=== PATIENT | female | born 1960 | race Caucasian/White ===

== ENCOUNTER 2016-06-10 10:20 | Emergency (ER) | payer MEDICARE, OTHER ==
[~2016-06-10] VITALS: Wt 70.0 kg
[~2016-06-10 10:20] MED LIST: IBUP800T25 PO; OMEP20CA16 PO; SIMV5TAB31 PO
[2016-06-10] MEDS ORDERED: LIDOCAINE 1% (MDV) 20 ML INJ SC ONE (11:30)
[2016-06-10] MEDS ORDERED: CEPH-443 PO (11:48)
[2016-06-10] MEDS ORDERED: BACTDS PO (11:48)
[2016-06-10] MEDS ORDERED: DIPHTH/TET/ACEL PERTUSS (ADULT) 0.5 ML VIAL IM* ONE (12:00)
--- NOTE | 2016-06-10 14:22 | ERD ---
DATE OF SERVICE: HISTORY OF PRESENT ILLNESS: The patient is a 55-year-old female complaining of left breast pain fro m an abscess for the last 2 days. She states that she has had no drainage. She has had no masses. There are no fevers. She is not . She has not used any medication for the symptoms. PAST MEDICAL HISTORY: She is diabetic, with no insulin. Hypertension, hypercholesterolemia, and os teoporosis. ALLERGIES TO MEDICATIONS: DENIES. SURGICAL HISTORY: Denies. REVIEW OF SYSTEMS: A 12-point review of systems was done. Refer to HPI for positives, all other sy stems negative. PHYSICAL EXAMINATION VITAL SIGNS: Temperature is 98.6, pulse 88, blood pressure is 138/70, respiratory rate 20, O2 satur ation 98% on room air. Pain intensity is 7/10. GENERAL: The patient is well-appearing, well-nourished, no acute distress. HEART: Regular rate and rhythm. No murmurs, clicks, rubs or gallops. No S3 or S4. CHEST: Clear to auscultation bilaterally. There are no rales, wheezes or rhonchi. HEENT: Atraumatic. Conjunctivae are pink. Pupils equal, round, and reactive to light. There is no s cleral icterus. Tympanic membranes clear bilaterally. Oropharynx clear. No nystagmus or photophobia . SKIN: Patient has an erythematous site noted on the left inferior lateral breast which is mildly er ythematous and fluctuant, with no lymphatic streaking, no indurated masses. ER COURSE: Site was cleaned, and approximately 2 mL of plain lidocaine were injected into the site. A small 1 cm linear incision was made and copious discharge was drained. The site was re-cleaned and a pressure bandage was applied. The patient given a tetanus shot in the ER. MEDICAL DECISION MAKING: I have a low suspicion for underlying deep tracking abscess. Patient like ly has superficial abscess, but is recommended to return in 2 days for close evaluation. DIAGNOSES: Abscess. DISCHARGE: The patient is discharged stable. Patient given prescription for Bactrim and Keflex and told to return in 2 days. Patient was told if symptoms progress or worsen to return to the ER. Al l other questions answered at time of discharge. Discharge summary given at the time of departure. Patient understood and complied with plan. Dictated By: ANGELADIVYA GR/FAITH Conf#: [id number] DID#: [id number]
== END 2016-06-10 12:06 | disposition home or self-care (01) ==
LOC: FTE 10:20
DX: N61.1 Abscess of the breast and nipple (principal); E11.9 Type 2 diabetes mellitus without complications; I10 Essential (primary) hypertension; Z23 Encounter for immunization
CPT/HCPCS: 90471; 90715

== ENCOUNTER 2016-12-06 10:17 | Emergency (ER) | payer MEDICARE, OTHER ==
[~2016-12-06] VITALS: Wt 75.0 kg
[~2016-12-06 10:17] MED LIST changes: +BACTDS PO; +CEPH-443 PO
[2016-12-06] MEDS ORDERED: LORA-186 PO (10:44)
[2016-12-06] MEDS ORDERED: BENZ100C70 PO (10:44)
[2016-12-06] MEDS ORDERED: FLUT9.9S NASAL (10:44)
[2016-12-06] MEDS ORDERED: IBUP400T22 PO (10:44)
--- NOTE | 2016-12-06 11:19 | ERD ---
ER Documentation Chief Complaint Date/Time DATE: 12/06/16 TIME: 11:17 Chief Complaint COUGH, CONGESTION, HEADACHE HPI 56-year-old female with hypertension presents complaining of cough, congestion, headache since last week. Patient states that it has been constant not worsening. She rates as moderate in severity. Patient denies any shortness of breath, she states that she has mild chest pain with deep breaths and coughing. Patient has tried xdgd-mml-agtntjo products last week. Denies fever ROS All systems reviewed and are negative except as per history of present illness. Medications Home Meds Active Scripts Ibuprofen* (Ibuprofen*) 400 Mg Tablet, 400 MG PO Q6H Y for PAIN, #30 TAB Prov:NORA ANGUIANO PA-C 12/06/16 Benzonatate* (Tessalon Perle*) 100 Mg Capsule, 100 MG PO Q8H Y for COUGH, #20 CAP Prov:NORA ANGUIANO PA-C 12/06/16 Loratadine* (Claritin*) 10 Mg Tablet, 10 MG PO DAILY, #20 TAB Prov:NORA ANGUIANO PA-C 12/06/16 Fluticasone Propionate (Flonase Allergy Relief) 9.9 Ml [place].susp, 1 SPRAY NASAL BID for 14 Days, #1 BOTTLE TO EACH NOSTRIL Prov:NORA ANGUIANO PA-C 12/06/16 Cephalexin* (Keflex*) 500 Mg Capsule, 500 MG PO BID for 7 Days, CAP Prov:JOSÉ VELÁSQUEZ PA-C 06/10/16 Sulfamethoxazole-Trimethoprim* (Bactrim* DS) 800-160 Mg Tab, 1 TAB PO BID for 7 Days, TAB Prov:JOSÉ VELÁSQUEZ PA-C 06/10/16 Reported Medications Simvastatin* (Zocor*) 5 Mg Tablet, 5 MG PO HS, TAB 01/10/14 Ibuprofen* (Ibuprofen*) 800 Mg Tab, 800 MG PO DAILY Y for PAIN, TAB 01/10/14 Omeprazole* (Omeprazole*) 20 Mg Capsule.dr, 20 MG PO AC BREAKFAST, CAP 11/24/13 Allergies Allergies: Coded Allergies: No Known Allergy (Unverified , 01/10/14) PMhx/Soc History of Surgery: Yes (LEFT BREAST, TOTAL HYSTERECTOMY, C SECTION) Hx Neurological Disorder: No Hx Respiratory Disorders: No Hx Psychiatric Problems: No Hx Miscellaneous Medical Probl: Yes (GERD, ARTHRITIS PAIN KNEES) Hx Alcohol Use: No Hx Substance Use: No Hx Tobacco Use: No Physical Exam Vitals Vital Signs Date Time Temp Pulse Resp B/P Pulse Ox O2 Delivery O2 Flow Rate FiO2 12/06/16 10:18 98.3 74 18 169/77 98 Physical Exam GENERAL: well-developed/well-nourished, in no apparent distress, non-toxic appearing HEAD: NC/AT, no swelling noted in frontal or maxillary areas EARS: bilateral tympanic membrane is intact without erythema or effusion NARES: nares patent, rhinorrhea and congested THROAT: oropharynx erythematous without exudates, no tonsil enlargement, post nasal drip EYES: Conjunctiva normal NECK: Supple, no lymphadenopathy PULM: CTA bilaterally, no rales, rhonchi, or wheezing heard CV: Normal S1S2, RRR, good capillary refill GI: Soft, non-distended, normal bowel sounds, non-tender BACK: No midline tenderness, no masses EXT No clubbing, cyanosis, or edema NEURO: Alert and Orientated SKIN: Intact, normal turgor PSYCH: Normal mood and mentation Procedures/MDM 56-year-old female with hypertension presents to the ER with upper respiratory infection, which is most likely viral. My clinical suspicion is low suspicion for pneumonia, strep pharyngitis, or pulmonary emergencies due to physical examination. Patient's lungs were clear on examination. hemodynamically stable for discharge. Prescription for Claritin, Flonase, ibuprofen and Tessalon Perles was given to patient, discussed to return to the ED if not improving as expected or follow-up with a primary care physician. Patient understood and agreed with this plan. Departure Diagnosis: Primary Impression: Upper respiratory infection Condition: Stable Patient Instructions: Uri, Viral, No Abx (Adult) Referrals: DOCTOR,NOT ON STAFF (PCP) Additional Instructions: Visite a black [place] para un EXAMEN.Regrese a estas instalaciones si no se mejora shaunna esperbamos o shaunna le dijimos. [facility] toda la medicina wes y shaunna se le indic. Regrese a estas instalaciones si no se mejora shaunna esperbamos o shaunna le dijimos. NORA ANGUIANO PA-C Dec 06, 2016 11:19
== END 2016-12-06 11:30 | disposition home or self-care (01) ==
LOC: FTE 10:17
DX: J06.9 Acute upper respiratory infection, unspecified (principal)
CPT/HCPCS: 99283

== ENCOUNTER 2017-05-22 16:21 | Emergency (ER) | END 2017-05-22 21:42 | disposition home or self-care (01) ==